=== PATIENT | female | born 1970 | race Asian ===

== ENCOUNTER 2022-06-05 06:46 | Day surgery (SDC) | payer OTHER ==
[2022-06-01 14:24] VITALS: BMI 32.6
[2022-06-05 07:16] VITALS: RESP 16
[2022-06-05] MEDS ORDERED: EPINEPHrine 1:1,000 1,000 MCG/ML ML ONE (07:18)
[2022-06-05] MEDS ORDERED: DEXAMETHASONE SOD PHOSPHATE 10 MG/1 ML VIAL ONE (07:26)
[2022-06-05] MEDS ORDERED: ROPIVACAINE HCL 0.5% 30ML VIAL ONE ×2 (07:26→07:33)
[2022-06-05] MEDS ORDERED: MIDAZOLAM HCL 2 MG/2 ML SINGLE DOSE VIAL ONE (07:26)
[2022-06-05] MEDS ORDERED: PROPOFOL 60 ML ONE (07:32)
[2022-06-05] MEDS ORDERED: BUPIVACAINE HCL/PF 2.5 MG/ML - 30 ML VIAL IJ ONE (07:33)
[2022-06-05] MEDS ORDERED: SUCCINYLCHOLINE CHLORIDE 200 MG/10 ML SYRINGE ONE (07:33)
[2022-06-05] MEDS ORDERED: ONDANSETRON 4 MG/2 ML VIAL ONE (08:18)
[2022-06-05] MEDS ORDERED: ceFAZolin SODIUM 1 GM VIAL ONE (08:18)
[2022-06-05] MEDS ORDERED: DEXAMETHASONE SOD PHOSPHATE 4 MG/1 ML VIAL ONE (08:18)
[2022-06-05] MEDS ORDERED: PROPOFOL 20 ML ONE (09:21)
[2022-06-05 10:18] VITALS: TEMP 98
[2022-06-05 11:09] VITALS: BP 142/81; PULSE 75
== END 2022-06-05 11:07 | disposition home or self-care (01) ==
LOC: FASU 06:46
PROVIDERS: ATTEND Orthopaedic Surgery Sports Medicine
PROC: 0PB94ZZ Excision of Right Clavicle, Percutaneous Endoscopic Approach (ICD-10-PCS; principal; 2022-06-05 08:40)
PROC: 0RBJ4ZZ Excision of Right Shoulder Joint, Percutaneous Endoscopic Approach (ICD-10-PCS; 2022-06-05 08:40)
PROC: 0LM14ZZ Reattachment of Right Shoulder Tendon, Percutaneous Endoscopic Approach (ICD-10-PCS; 2022-06-05 08:40)
DX: M75.121 Complete rotator cuff tear or rupture of right shoulder, not specified as traumatic (principal); M75.21 Bicipital tendinitis, right shoulder; M75.51 Bursitis of right shoulder; M65.9 Synovitis and tenosynovitis, unspecified; M19.011 Primary osteoarthritis, right shoulder
CPT/HCPCS: 82962; C1713; J1100

== ENCOUNTER 2024-07-13 06:21 | Day surgery (SDC) | payer OTHER ==
[2024-07-11 10:14] VITALS: BMI 29.5
[2024-07-13] MEDS ORDERED: MIDAZOLAM HCL 2 MG/2 ML SINGLE DOSE VIAL ONE (07:14)
[2024-07-13] MEDS ORDERED: DEXAMETHASONE SOD PHOSPHATE 4 MG/1 ML VIAL ONE (07:14)
[2024-07-13] MEDS ORDERED: LIDOCAINE HCL/PF 2% SDV 5ML VIAL ONE (07:14)
[2024-07-13] MEDS ORDERED: PROPOFOL 100 ML ONE (07:14)
[2024-07-13] MEDS ORDERED: VANCOMYCIN 1,000 MG VIAL (RESTRICTED TO ID ONLY) ONE ×2 (07:26→08:24)
[2024-07-13] MEDS ORDERED: BUPIVACAINE HCL/PF 0.5% (5MG/ML) 10 ML VIAL ONE (07:29)
[2024-07-13] MEDS ORDERED: ROPIVACAINE HCL/PF 100 MG/20 ML VIAL ONE (07:29)
[2024-07-13] MEDS ORDERED: ceFAZolin SODIUM 1 GM VIAL ONE (08:24)
[2024-07-13] MEDS ORDERED: TRANEXAMIC ACID 1000 MG/10 ML VIAL ONE ×2 (08:24→09:39)
[2024-07-13] MEDS ORDERED: PROPOFOL 20 ML ONE (08:52)
[2024-07-13] MEDS ORDERED: BUPIVICAINE 0.25%/MORPH PF/KETOROLAC - 51ML DISP.SYRINGE IA ONE (09:43)
[2024-07-13] MEDS: VANCOMYCIN 1,000 MG VIAL (RESTRICTED TO ID ONLY) IVPB ONE (09:46)
[2024-07-13] MEDS ORDERED: PROMETHAZINE HCL 25 MG/1 ML VIAL IVPB PRN (09:48)
[2024-07-13] MEDS ORDERED: ONDANSETRON 4 MG/2 ML VIAL IVPUSH PRN ×2 (09:48→10:34)
[2024-07-13] MEDS: KETOROLAC TROMETHAMINE 30 MG/1 ML VIAL IM ONE ×2 (09:56)
[2024-07-13] MEDS: BUPIVACAINE HCL/PF 0.25% (2.5MG/ML) 10 ML VIAL IJ ONE ×2 (09:56)
[2024-07-13] MEDS: morphine SULFATE/PF 1 MG/2 ML (2cc Syringe - QUVA) EP ONE ×2 (09:56)
[2024-07-13] MEDS ORDERED: MAG HYDROX/AL HYDROX/SIMETH 30 ML UNIT-DOSE CUP PO PRN (10:34)
[2024-07-13] MEDS: ACETAMINOPHEN 1000 MG/100 ML BAG IVPB SCH (11:58)
[2024-07-13] MEDS: KETOROLAC TROMETHAMINE 30 MG/1 ML VIAL IVPUSH SCH (12:00)
[2024-07-13 12:01] LABS: HEMOGLOBIN 10.2 G/dL (10.7-15.3); MCH 25.4 pg (25.7-33.7); MCHC 31.8 g/dl (32.0-36.0); MEAN CELL VOLUME 79.7 fl (80-96); MEAN PLT VOLUME 8.9 fl (7.5-11.1); PLATELET COUNT 392.7 10^3/uL (134-434); RBC 4.01 10^6/uL (3.60-5.2); RDW 16.3 % (11.6-15.6); WHITE BLOOD COUNT 9.4 10^3/uL (4.0-10.8)
[2024-07-13] MEDS: LACTATED RINGERS SOLUTION 1,000 ML IV SCH ×2 (12:55)
[2024-07-13 13:05] LABS: PLATELET ESTIMATE ADEQUATE
[2024-07-13] MEDS: CEFAZOLIN 2 GM/D5W 2 GRAM/50 ML ML IVPB SCH (16:12)
[2024-07-13] MEDS: oxyCODONE HCL 5 MG TABLET PO PRN (16:13)
[2024-07-13 20:00] VITALS: RESP 18
[2024-07-13] MEDS: GABAPENTIN 300 MG CAPSULE PO SCH (21:35)
[2024-07-13] MEDS: SENNOSIDES/DOCUSATE COMBO (SENNA PLUS) TABLET (UD) PO SCH (21:35)
[2024-07-13] MEDS ORDERED: PATIENT'S OWN MEDICATION (NON-FORMULARY) (Sitagliptin Phos/Metformin Hcl [Janumet Xr 50-1, PO SCH (22:00)
[2024-07-13] MEDS: KETOROLAC TROMETHAMINE 30 MG/1 ML VIAL IVPUSH ONE (22:58)
[2024-07-14] MEDS: metFORMIN HCL 500 MG TABLET (FP) PO SCH (06:39)
[2024-07-14] MEDS: sitaGLIPtin PHOSPHATE 50 MG TABLET PO SCH (06:39)
[2024-07-14] MEDS: oxyCODONE HCL 5 MG TABLET PO PRN (06:40)
[2024-07-14 08:25] LABS: HEMATOCRIT 31.8 % (32.4-45.2); HEMOGLOBIN 10.1 G/dL (10.7-15.3); MCH 25.2 pg (25.7-33.7); MCHC 31.7 g/dl (32.0-36.0); MEAN CELL VOLUME 79.4 fl (80-96); MEAN PLT VOLUME 9.2 fl (7.5-11.1); PLATELET COUNT 389.1 10^3/uL (134-434); RDW 16.6 % (11.6-15.6); WHITE BLOOD COUNT 9.5 10^3/uL (4.0-10.8)
[2024-07-14 08:43] LABS: CREATININE 0.6 mg/dl (0.6-1.3); POTASSIUM 4.5 mmol/L (3.5-5.1)
[2024-07-14] MEDS: HYDROCHLOROTHIAZIDE 25 MG TABLET (FP) PO SCH (09:24)
[2024-07-14] MEDS: LISINOPRIL 20 MG TABLET PO SCH (09:24)
[2024-07-14] MEDS: PANTOPRAZOLE 40 MG TABLET PO SCH (09:24)
[2024-07-14] MEDS: ASPIRIN COATED 81 MG TABLET.EC PO SCH (09:24)
[2024-07-14] MEDS: MULTIVITAMINS (DAILY MVI) TABLET (FP) PO SCH (09:24)
[2024-07-14 14:29] VITALS: BP 139/72; PULSE 76; TEMP 98.1
[2024-07-17] MEDS ORDERED: PATIENT'S OWN MEDICATION (NON-FORMULARY) (Semaglutide [Ozempic] 1 MG/0.75 ML Pen.Injctr) SQ SCH (14:43)
== END 2024-07-14 15:54 | disposition home or self-care (01) ==
LOC: SUATTDRO 06:21 → FASUSAT 06:21 → FM/S 12:38 → FASUSAT 07-14 15:54
PROC: 8E0Y0CZ Robotic Assisted Procedure of Lower Extremity, Open Approach (ICD-10-PCS; 2024-07-13)
PROC: 0SRC0JA Replacement of Right Knee Joint with Synthetic Substitute, Uncemented, Open Approach (ICD-10-PCS; principal; 2024-07-13 08:52)
DX: M17.11 Unilateral primary osteoarthritis, right knee (principal)
CPT/HCPCS: 20985; 27447; C1776; S2900; 36415; 73560-TC-RT-FY; 80048; 82962; 85027; 88305-TC; 88311-TC; 94760; 97010-GP; 97116-GP; 97162-GP; J0131

== ENCOUNTER 2024-10-26 07:29 | Day surgery (SDC) | payer OTHER ==
[2024-10-24 12:42] VITALS: BMI 28.0
[2024-10-26] MEDS ORDERED: ACETAMINOPHEN 500 MG TABLET (FP) PO PRN (09:13)
[2024-10-26] MEDS ORDERED: DEXAMETHASONE SOD PHOSPHATE 10 MG/1 ML VIAL ONE (12:56)
[2024-10-26 14:23] VITALS: BP 136/79; PULSE 77; RESP 18; TEMP 97.8
== END 2024-10-26 13:26 | disposition home or self-care (01) ==
LOC: JASU-SURG 07:29
PROVIDERS: ATTEND Pain Medicine Pain Medicine
PROC: 3E0R3BZ Introduction of Anesthetic Agent into Spinal Canal, Percutaneous Approach (ICD-10-PCS; 2024-10-26)
PROC: 3E0R33Z Introduction of Anti-inflammatory into Spinal Canal, Percutaneous Approach (ICD-10-PCS; principal; 2024-10-26 13:15)
DX: M54.16 Radiculopathy, lumbar region (principal)
CPT/HCPCS: 76000-TC-FY; J1100

== ENCOUNTER 2024-11-23 06:55 | Day surgery (SDC) | payer OTHER ==
[2024-11-21 11:12] VITALS: BMI 27.1
[2024-11-23] MEDS: LIDOCAINE HCL 1%, 10 MG/ML (20ML VIAL) NR ONE
[2024-11-23] MEDS ORDERED: BUPIVACAINE HCL/PF 0.25% (2.5MG/ML) 10 ML VIAL ONE (07:21)
[2024-11-23] MEDS ORDERED: ACETAMINOPHEN 500 MG TABLET (FP) PO PRN (08:42)
[2024-11-23] MEDS: LIDOCAINE HCL 1% PRESERVATIVE FREE - 30ML VIAL IJ ONE ×2 (09:04)
[2024-11-23] MEDS: TRIAMCINOLONE ACETONIDE 40 MG/ML 10 ML VIAL IJ ONE ×2 (09:04)
[2024-11-23] MEDS: IOHEXOL 180 MG/1 ML ML IJ ONE ×2 (09:05)
[2024-11-23] MEDS: BUPIVACAINE HCL/PF 0.5% (5MG/ML) 10 ML VIAL IJ ONE ×2 (09:05)
[2024-11-23 15:30] VITALS: BP 118/73; PULSE 85; RESP 20; TEMP 97.3
== END 2024-11-23 09:21 | disposition home or self-care (01) ==
LOC: JASU-SURG 06:55
PROVIDERS: ATTEND Pain Medicine Pain Medicine
PROC: 3E0U3BZ Introduction of Anesthetic Agent into Joints, Percutaneous Approach (ICD-10-PCS; 2024-11-23)
PROC: 3E0U33Z Introduction of Anti-inflammatory into Joints, Percutaneous Approach (ICD-10-PCS; principal; 2024-11-23 08:15)
DX: M53.3 Sacrococcygeal disorders, not elsewhere classified (principal)
CPT/HCPCS: 76000-TC-FY